=== PATIENT | female | born 1970 | race Caucasian/White ===

== ENCOUNTER 2018-12-12 07:41 | Emergency (ER) | payer OTHER ==
[~2018-12-12] VITALS: Ht 162.6 cm; Wt 60.8 kg
[2018-12-12] MEDS ORDERED: DIAZEPAM10 MG PO (11:25)
[2018-12-12] MEDS ORDERED: DICLOFENAC SODI75 MG PO (11:25)
== END 2018-12-12 12:13 | disposition home or self-care (01) ==
LOC: ER 07:41
DX: M54.16 Radiculopathy, lumbar region (principal); M54.5 Low back pain